=== PATIENT | male | born 1975 | race American Indian/Alaskan Native ===

== ENCOUNTER 2018-10-06 21:20 | Emergency (ER) | payer OTHER ==
[2018-10-06 21:26] VITALS: BP 167/100
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
[2018-10-06] MEDS ORDERED: BOOSTRIX IM ONE (22:51)
[2018-10-06] MEDS ORDERED: ULTRAM PO ONE (22:51)
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
== END 2018-10-06 23:46 | disposition home or self-care (01) ==
LOC: ED 21:20
DX: S01.312A Laceration without foreign body of left ear, initial encounter (principal); Z79.899 Other long term (current) drug therapy; Z98.890 Other specified postprocedural states; V40.0XXA Car driver injured in collision with pedestrian or animal in nontraffic accident, initial encounter; Y93.89 Activity, other specified; Y92.410 Unspecified street and highway as the place of occurrence of the external cause; Y99.8 Other external cause status
CPT/HCPCS: 90471; 90715